=== PATIENT | male | born 1945 | race Caucasian/White ===

== ENCOUNTER 2018-04-10 06:44 | Day surgery (SDC) | payer MEDICARE ==
[2018-04-10] MEDS ORDERED: Sodium Chloride 0.9% 1,000 ML IV SCH (07:00)
[2018-04-10] MEDS ORDERED: fentaNYL 100 MCG/2 ML SDV ONE (07:08)
[2018-04-10] MEDS ORDERED: Propofol 200 MG/20 ML SDV ONE (07:08)
[2018-04-10] MEDS ORDERED: Midazolam 1 MG/ML 2 ML SDV ONE (07:08)
--- NOTE | 2018-04-10 10:07 | OR ---
DATE OF PROCEDURE: 04/10/2018 PROCEDURE: Colonoscopy. FINDINGS: 1. Cecal polyp. 2. Diverticulosis, mild. COMPLICATIONS: None. RUBBER GRINDER: None. ANESTHESIA: MAC. PREOPERATIVE DIAGNOSIS: History of colon polyps. POSTOPERATIVE DIAGNOSIS: History of colon polyps. RISKS: Risks, benefits, alternatives, and limitations including, but not limited to infection, bleeding, and perforation were explained to the patient, and they wished to proceed. PROCEDURE IN DETAIL: The patient was placed in left lateral decubitus position. A digital rectal exam was performed without abnormality. The scope was introduced and advanced atraumatically to the ileocecal valve. Within the ileocecal valve, approximately 1 to 2 cm from the appendiceal orifice, there was a sessile-type lesion. This was, using cold biopsy forceps, removed or close to 99% removed. As the scope was brought back to the remainder of the colon, the patient did have diverticulosis described as mild and limited to the sigmoid colon. On retroflex, there were no other abnormalities. The patient tolerated the procedure well. Mook Miller MD /[id number]
== END 2018-04-10 10:05 | disposition home or self-care (01) ==
LOC: JP.SDS 06:44
PROVIDERS: ATTEND Surgery
DX: Z12.11 Encounter for screening for malignant neoplasm of colon (principal); D12.0 Benign neoplasm of cecum; K57.30 Diverticulosis of large intestine without perforation or abscess without bleeding; Z86.010 Personal history of colon polyps; I10 Essential (primary) hypertension; E78.5 Hyperlipidemia, unspecified; K21.9 Gastro-esophageal reflux disease without esophagitis; Z88.8 Allergy status to other drugs, medicaments and biological substances
CPT/HCPCS: 45380; 88305; J2250; J2704; J3010; J7030

== ENCOUNTER 2021-04-23 08:22 | Day surgery (SDC) | payer MEDICARE ==
[~2021-04-23 08:22] MED LIST: Midazolam 1 MG/ML 2 ML SDV ONE; Propofol 200 MG/20 ML SDV ONE; fentaNYL 100 MCG/2 ML SDV ONE
[2021-04-23] MEDS ORDERED: Sodium Chloride 0.9% 1,000 ML IV SCH (09:45)
--- NOTE | 2021-04-23 14:36 | OR ---
DATE OF PROCEDURE: SURGEON: Mook Miller MD PROCEDURE: Colonoscopy. FINDINGS: Diverticulosis, moderate, mostly limited to sigmoid colon. COMPLICATIONS: None. CENTRAL PROCESSING TECHNICIAN: None. ANESTHESIA: MAC. PREOPERATIVE DIAGNOSIS: Screening colonoscopy. POSTOPERATIVE DIAGNOSIS: Screening colonoscopy. RISKS: Risks, benefits, alternatives, and limitations including, but not limited to infection, bleeding, perforation, false positives and false negatives were explained to the patient who wished to proceed. PROCEDURE IN DETAIL: The patient was placed in the left lateral decubitus position. Digital rectal exam was performed without abnormality. The scope was introduced and advanced atraumatically to the ileocecal valve. The scope was brought back through the remainder of the colon. No polyps, no masses. No old or new blood. The patient did have diverticulosis which was noted to be in classic sigmoid pattern without evidence of diverticulitis or bleeding. Prep was marginal. approximately 85% to 90% luminal surface could be seen with solid and liquid stool remaining. Suction irrigation techniques were used to remove the majority of this. No abnormalities on retroflexion. Greater than 8 minutes were spent removing the scope. The patient tolerated the procedure well. Mook Miller MD /[id number]
== END 2021-04-23 12:36 | disposition home or self-care (01) ==
LOC: JP.SDS 08:22
PROVIDERS: ATTEND Surgery
DX: Z12.11 Encounter for screening for malignant neoplasm of colon (principal); K57.30 Diverticulosis of large intestine without perforation or abscess without bleeding; Z86.010 Personal history of colon polyps; K21.9 Gastro-esophageal reflux disease without esophagitis
CPT/HCPCS: G0105; J2250; J2704; J3010; J7030

== ENCOUNTER 2022-06-30 06:57 | Day surgery (SDC) | payer MEDICARE ==
[2022-06-30] MEDS ORDERED: Sodium Chloride 0.9% 10 ML Syringe FLUSH ONE (07:30)
== END 2022-06-30 08:34 | disposition home or self-care (01) ==
LOC: JP.SDS 06:57
PROVIDERS: ATTEND Ophthalmology
DX: H25.12 Age-related nuclear cataract, left eye (principal); I10 Essential (primary) hypertension
CPT/HCPCS: 66984; J3490

== ENCOUNTER 2025-04-11 08:03 | Day surgery (SDC) | payer MEDICARE ==
[2025-04-11] MEDS ORDERED: fentaNYL 100 MCG/2 ML SDV ONE (08:29)
[2025-04-11] MEDS ORDERED: Propofol 200 MG/20 ML SDV ONE ×3 (08:29→09:58)
[2025-04-11] MEDS: Lactated Ringers 1,000 ML IV SCH (08:48)
== END 2025-04-11 11:38 | disposition home or self-care (01) ==
LOC: JP.SDS 08:03
PROVIDERS: ATTEND Surgery
DX: Z12.11 Encounter for screening for malignant neoplasm of colon (principal); D12.4 Benign neoplasm of descending colon; K57.30 Diverticulosis of large intestine without perforation or abscess without bleeding; I10 Essential (primary) hypertension
CPT/HCPCS: 00811-QZ; 88305; J2704; J3010; J7120

== ENCOUNTER 2025-04-11 13:45 | Inpatient (IN) | payer MEDICARE ==
[2025-04-11 14:03] LABS: BASOPHILS PERCENT AUTO 0.3 % (0.1-1.3); EOSINOPHILS ABSOLUTE AUTO 0.03 K/uL (0.00-0.40); EOSINOPHILS PERCENT AUTO 0.8 % (0.0-5.4); HEMATOCRIT 40.6 % (38.4-49.7); HEMOGLOBIN 13.3 g/dL (12.9-16.9); LYMPHOCYTES ABSOLUTE AUTO 1.57 K/uL (0.8-3.3); LYMPHOCYTES PERCENT AUTO 43.3 % (11.4-47.7); MEAN CORPUSCULAR HEMOGLOBIN 34.6 pg (31.6-35.5); MEAN CORPUSCULAR HGB CONC 32.8 g/dL (31.6-35.5); MEAN CORPUSCULAR VOLUME 105.7 fL (81.4-99.0); MONOCYTES ABSOLUTE AUTO 0.21 K/uL (0.20-0.90); MONOCYTES PERCENT AUTO 5.8 % (3.3-12.6); NEUTROPHILS ABSOLUTE AUTO 1.81 K/uL (1.0-7.6); NEUTROPHILS PERCENT AUTO 49.8 % (40.0-78.1); PLATELET COUNT,PLT 101 K/uL (130-375); RED BLOOD CELL COUNT 3.84 M/uL (4.14-5.76); WHITE BLOOD CELL COUNT,WBC 3.6 K/uL (3.2-11.0)
[2025-04-11 14:04] LABS: BASOPHILS ABSOLUTE AUTO 0.01 K/uL (0.00-0.10)
[2025-04-11] MEDS: Sodium Chloride 0.9% 1,000 ML IV SCH ×3 (14:05→18:37)
[2025-04-11] MEDS: Acetaminophen 1,000 MG in Premix Bag 1 BAG IV ONE (14:12)
[2025-04-11] MEDS: Ondansetron 4 MG/2 ML SDV IVPUSH ONE (14:21)
[2025-04-11] MEDS: metroNIDAZOLE/Normal Saline 500 MG in Premix Bag 1 BAG IV ONE (14:24)
[2025-04-11 14:25] LABS: ALANINE AMINOTRANSFERASE,ALT 37 U/L (12-78); ALKALINE PHOSPHATASE 91 U/L (46-116); ANION GAP 11.9 mmol/L (5.0-14.0); ASPARTATE AMNIOTRANSFERASE,AST 48 U/L (15-37); BILIRUBIN TOTAL 2.7 mg/dL (0.2-1.0); BLOOD UREA NITROGEN,BUN 26 mg/dL (7-18); CARBON DIOXIDE,CO2 26 mmol/L (21-32); CHLORIDE,CL 103 mmol/L (100-108); CREATININE 1.2 mg/dL (0.8-1.3); EST CRCL DRUG DOSING (CG) 51.55 mL/min; ESTIMATED GFR 62 mL/min (>60); GLUCOSE RANDOM 134 mg/dL (74-106); POTASSIUM,K 4.4 mmol/L (3.6-5.2); SODIUM,NA 141 mmol/L (140-148)
[2025-04-11] MEDS: Levofloxacin/Dextrose 5%-Water 750 MG in Premix Bag 1 BAG IV ONE (14:30)
[2025-04-11] MEDS ORDERED: Doxycycline 200 MG in Sodium Chloride 0.9% 250 ML IV ONE (14:46)
[2025-04-11] MEDS: Ibuprofen 600 MG Tab PO ONE (15:00)
[2025-04-11 15:04] LABS: APPEARANCE,URINE CLEAR (CLEAR); BILIRUBIN,URINE NEGATIVE (NEGATIVE); COLOR,URINE YELLOW (YELLOW); GLUCOSE,URINE NEGATIVE (NEGATIVE); KETONES,URINE NEGATIVE (NEGATIVE); LEUKOCYTE ESTERASE,URINE NEGATIVE (NEGATIVE); NITRITE,URINE NEGATIVE (NEGATIVE); OCCULT BLOOD,URINE TRACE-INTACT (NEGATIVE); PH,URINE 5.5 (5.0-8.0); PROTEIN,URINE 30 mg/dL (NEGATIVE); UROBILINOGEN,URINE 0.2 EU/dL (0.2-1.0)
[2025-04-11 15:05] LABS: LYME AB IgM Negative (Negative)
[2025-04-11 15:08] LABS: LYME AB IgG Negative (Negative)
[2025-04-11 15:11] LABS: AMORPHOUS SEDIMENT,URINE NOT SEEN; BACTERIA,URINE FEW; EPITHELIAL CELLS,URINE NOT SEEN; MUCUS,URINE NOT SEEN; RBC,URINE 0-5 (0-5); WBC,URINE 0-5 (0-5)
[2025-04-11] MEDS: Sodium Chloride 0.9% 10 ML Syringe FLUSH ONE (15:43)
[2025-04-11] MEDS: Sodium Chloride 0.9% 100 ML IV ONE (15:43)
[2025-04-11] MEDS: Iopamidol 612 MG/ML 100 ML Bottle IV ONE (15:44)
[2025-04-11] MEDS: Sodium Chloride 0.9% 1,000 ML IV ONE (16:26)
[2025-04-11] MEDS: Doxycycline 200 MG in Sodium Chloride 0.9% 250 ML IV ONE (16:27)
[2025-04-11] MEDS: Norepinephrine Bit/D5W Premix 4 MG in Premix Bag 1 BAG IV SCH (16:39)
[2025-04-11] MEDS ORDERED: Sodium Chloride 0.9% 10 ML Syringe FLUSH PRN (17:27)
[2025-04-11] MEDS ORDERED: Ondansetron 4 MG/2 ML SDV IV PRN (17:27)
[2025-04-11] MEDS ORDERED: Doxycycline 100 MG in Sodium Chloride 0.9% 100 ML IV SCH (17:27)
[2025-04-11] MEDS ORDERED: Polyethylene Glycol 3350 Powder 17 GM Packet PO PRN (17:27)
[2025-04-11] MEDS ORDERED: Piperacillin/Tazobactam 4.5 GM in Sodium Chloride 0.9% 100 ML IV ONE (17:27)
[2025-04-11] MEDS ORDERED: Piperacillin/Tazobactam 4.5 GM in Sodium Chloride 0.9% 100 ML IV SCH (18:00)
[2025-04-11] MEDS ORDERED: VANCOmycin 1 GM SDV IV SCH (18:00)
[2025-04-11] MEDS: Piperacillin/Tazobactam/Dext 4.5 GM in Premix Bag 1 BAG IV ONE (19:48)
[2025-04-11] MEDS: VANCOmycin 1.5 GM in Sodium Chloride 0.9% 250 ML IV ONE (19:50)
[2025-04-11] MEDS: oxyCODONE 5 MG Tab PO PRN (21:11)
[2025-04-11] MEDS: Acetaminophen 325 MG Tab PO PRN (21:12)
[2025-04-11] MEDS: Piperacillin/Tazobactam/Dext 4.5 GM in Premix Bag 1 BAG IV SCH (23:06)
[2025-04-12] MEDS: Norepinephrine Bit/D5W Premix 4 MG in Premix Bag 1 BAG IV SCH (01:37)
[2025-04-12] MEDS ORDERED: Doxycycline 100 MG in Sodium Chloride 0.9% 100 ML IV SCH (04:30)
[2025-04-12 05:57] LABS: HEMATOCRIT 31.6 % (38.4-49.7); HEMOGLOBIN 10.1 g/dL (12.9-16.9); MEAN CORPUSCULAR HEMOGLOBIN 34.5 pg (31.6-35.5); MEAN CORPUSCULAR VOLUME 107.8 fL (81.4-99.0); RED BLOOD CELL COUNT 2.93 M/uL (4.14-5.76); WHITE BLOOD CELL COUNT,WBC 6.3 K/uL (3.2-11.0)
[2025-04-12 06:17] LABS: A/G RATIO 0.8 (1.2-2.2); ALANINE AMINOTRANSFERASE,ALT 25 U/L (12-78); ALBUMIN 2.7 g/dL (3.4-5.0); ALKALINE PHOSPHATASE 64 U/L (46-116); ANION GAP 11.4 mmol/L (5.0-14.0); ASPARTATE AMNIOTRANSFERASE,AST 35 U/L (15-37); BILIRUBIN TOTAL 3.2 mg/dL (0.2-1.0); BLOOD UREA NITROGEN,BUN 19 mg/dL (7-18); CALCIUM 8.4 mg/dL (8.5-10.1); CARBON DIOXIDE,CO2 24 mmol/L (21-32); CHLORIDE,CL 108 mmol/L (100-108); CREATININE 1.3 mg/dL (0.8-1.3); EST CRCL DRUG DOSING (CG) 47.59 mL/min; ESTIMATED GFR 57 mL/min (>60); GLUCOSE RANDOM 138 mg/dL (74-106); MAGNESIUM 1.4 mg/dL (1.8-2.4); POTASSIUM,K 3.7 mmol/L (3.6-5.2); PROTEIN TOTAL,TP 5.9 g/dL (6.4-8.2); SODIUM,NA 143 mmol/L (140-148)
[2025-04-12] MEDS: Pantoprazole 40 MG Tab.CR PO SCH (08:30)
[2025-04-12] MEDS: Magnesium Sulfate 2 GM/50 mL 2 GM in Premix Bag 1 BAG IV SCH (08:31)
[2025-04-12] MEDS: Rosuvastatin 10 MG Tab PO SCH (08:31)
[2025-04-12] MEDS: Aspirin 81 MG Tab.EC PO SCH (08:31)
[2025-04-12] MEDS: Magnesium Oxide 400 MG Tab PO SCH (08:32)
[2025-04-12] MEDS: Finasteride 5 MG Tab PO SCH (08:32)
[2025-04-12] MEDS ORDERED: Non-Formulary Medication 1 Each (Omeprazole [Omeprazole] 20 MG Cap.Cr) PO SCH (09:00)
[2025-04-12] MEDS ORDERED: Non-Formulary Medication 1 Each (Rosuvastatin [Crestor] 40 MG Tablet) PO SCH (09:00)
[2025-04-12] MEDS: Doxycycline 100 MG in Sodium Chloride 0.9% 100 ML IV SCH (09:00)
[2025-04-12] MEDS ORDERED: Sodium Chloride 0.9% 1,000 ML IV SCH (12:00)
[2025-04-12] MEDS: VANCOmycin 1 GM in Sodium Chloride 0.9% 250 ML IV SCH (12:54)
[2025-04-12] MEDS ORDERED: VANCOmycin 1 GM in Sodium Chloride 0.9% 250 ML IV SCH (14:00)
[2025-04-12] MEDS: Norepinephrine 8 MG in Dextrose 5% in Water 242 ML IV SCH (14:34)
[2025-04-13 05:53] LABS: HEMATOCRIT 28.8 % (38.4-49.7); HEMOGLOBIN 9.4 g/dL (12.9-16.9); MEAN CORPUSCULAR HEMOGLOBIN 34.7 pg (31.6-35.5); MEAN CORPUSCULAR HGB CONC 32.6 g/dL (31.6-35.5); MEAN CORPUSCULAR VOLUME 106.3 fL (81.4-99.0); RED BLOOD CELL COUNT 2.71 M/uL (4.14-5.76); WHITE BLOOD CELL COUNT,WBC 5.5 K/uL (3.2-11.0)
[2025-04-13 06:15] LABS: A/G RATIO 0.7 (1.2-2.2); ALANINE AMINOTRANSFERASE,ALT 20 U/L (12-78); ALBUMIN 2.4 g/dL (3.4-5.0); ALKALINE PHOSPHATASE 61 U/L (46-116); ANION GAP 11.5 mmol/L (5.0-14.0); ASPARTATE AMNIOTRANSFERASE,AST 24 U/L (15-37); BILIRUBIN TOTAL 1.4 mg/dL (0.2-1.0); BLOOD UREA NITROGEN,BUN 9 mg/dL (7-18); CALCIUM 8.6 mg/dL (8.5-10.1); CARBON DIOXIDE,CO2 25 mmol/L (21-32); CHLORIDE,CL 109 mmol/L (100-108); EST CRCL DRUG DOSING (CG) 61.86 mL/min; ESTIMATED GFR 78 mL/min (>60); GLUCOSE RANDOM 139 mg/dL (74-106); MAGNESIUM 2.2 mg/dL (1.8-2.4); POTASSIUM,K 3.5 mmol/L (3.6-5.2); PROTEIN TOTAL,TP 5.7 g/dL (6.4-8.2); SODIUM,NA 142 mmol/L (140-148)
[2025-04-13] MEDS: Potassium Chloride 20 MEQ Tab.ER PO ONE ×2 (08:26→18:13)
[2025-04-13] MEDS: Lactobacillus Rhamnosus GG (Probiotic) Cap PO SCH (15:02)
[2025-04-13] MEDS: Pantoprazole 40 MG Tab.CR PO SCH (21:26)
[2025-04-14 05:23] LABS: HEMATOCRIT 31.2 % (38.4-49.7); MEAN CORPUSCULAR HEMOGLOBIN 33.9 pg (31.6-35.5); MEAN CORPUSCULAR HGB CONC 32.1 g/dL (31.6-35.5); MEAN CORPUSCULAR VOLUME 105.8 fL (81.4-99.0); RED BLOOD CELL COUNT 2.95 M/uL (4.14-5.76); WHITE BLOOD CELL COUNT,WBC 4.3 K/uL (3.2-11.0)
[2025-04-14 05:39] LABS: CALCIUM 9.4 mg/dL (8.5-10.1); EST CRCL DRUG DOSING (CG) 61.86 mL/min; POTASSIUM,K 4.1 mmol/L (3.6-5.2)
[2025-04-14 05:42] LABS: ANION GAP 14.1 mmol/L (5.0-14.0)
[2025-04-14] MEDS: Amoxicillin/Clavulanate K 875-125 MG Tab PO SCH (21:02)
[2025-04-14] MEDS: Doxycycline 100 MG Cap PO SCH (21:02)
[2025-04-15 06:00] LABS: HEMATOCRIT 29.5 % (38.4-49.7); HEMOGLOBIN 9.5 g/dL (12.9-16.9); MEAN CORPUSCULAR HEMOGLOBIN 34.3 pg (31.6-35.5); MEAN CORPUSCULAR HGB CONC 32.2 g/dL (31.6-35.5); MEAN CORPUSCULAR VOLUME 106.5 fL (81.4-99.0); RED BLOOD CELL COUNT 2.77 M/uL (4.14-5.76); WHITE BLOOD CELL COUNT,WBC 2.7 K/uL (3.2-11.0)
[2025-04-17 15:12] LABS: ANAPLASMA PHAGOCYTOPHILUM PCR Inconclusive; BABESIA MICROTI BY PCR Not Detected; BABESIA SPECIES BY PCR Not Detected; EHRLICHIA CHAFFEENSIS BY PCR Not Detected; EHRLICHIA EWINGII/CANIS BY PCR Not Detected; EHRLICHIA MURIS-LIKE BY PCR Not Detected
== END 2025-04-15 11:10 | disposition home or self-care (01) | DRG 871 ==
LOC: JP.ED 13:45 → JP.ICU 16:50
PROVIDERS: ADMIT Hospitalist; ATTEND Internal Medicine
PROC: 3E03329 Introduction of Other Anti-infective into Peripheral Vein, Percutaneous Approach (ICD-10-PCS; principal; 2025-04-11)
PROC: 3E033XZ Introduction of Vasopressor into Peripheral Vein, Percutaneous Approach (ICD-10-PCS; 2025-04-11)
DX: A41.9 Sepsis, unspecified organism (principal); J18.9 Pneumonia, unspecified organism; J96.01 Acute respiratory failure with hypoxia; A68.1 Tick-borne relapsing fever; R65.21 Severe sepsis with septic shock; K62.5 Hemorrhage of anus and rectum; H54.7 Unspecified visual loss; E78.00 Pure hypercholesterolemia, unspecified; I10 Essential (primary) hypertension; E87.6 Hypokalemia; D46.9 Myelodysplastic syndrome, unspecified; I25.10 Atherosclerotic heart disease of native coronary artery without angina pectoris; E86.0 Dehydration; K59.09 Other constipation; K21.9 Gastro-esophageal reflux disease without esophagitis; Z96.619 Presence of unspecified artificial shoulder joint; Z85.820 Personal history of malignant melanoma of skin; Z85.46 Personal history of malignant neoplasm of prostate; Z98.890 Other specified postprocedural states; Z95.5 Presence of coronary angioplasty implant and graft; Z88.8 Allergy status to other drugs, medicaments and biological substances; Z98.49 Cataract extraction status, unspecified eye; Z79.899 Other long term (current) drug therapy; Z79.82 Long term (current) use of aspirin; Z87.891 Personal history of nicotine dependence
CPT/HCPCS: 36415; 71046 ×2; 71260 ×2; 74177 ×2; 80053; 81001; 83605; 85025; 86140; 86618 ×2; 87040 ×2; 87468; 87469; 87484; 87798 ×3; A9270; J0131; J1836; J1956; J2405; J3490; J7030 ×3; J7050; Q9967; 80048; 80202; 82272; 83735; 85018; 85027; 97161-GP; 99223; 99232; 99238; J2543; J3370; J3475; J7060